=== PATIENT | male | born 1940 | race African-American/Black ===

== ENCOUNTER 2021-02-18 12:57 | Inpatient (IN) | payer MEDICARE, MEDICAID, SELFPAY ==
[2021-02-18] VITALS (7 sets, daily range): BP systolic 86–129; BP diastolic 45–100; PULSE 40–69; RESP 12–25; TEMP 36.6; O2SAT 95–100; BMI 23.6
--- NOTE | ~2021-02-18 | US_ITS ---
EXAMINATION: US carotid duplex BI DATE: 02/19/2021 16:19 INDICATION: Speech deficit. Confusion. TECHNIQUE: Grayscale, color Doppler, and pulsed Doppler images of the cervical carotid arteries were obtained. The degree of vessel stenosis is placed in one of the following categories: normal, <50%, 5 0-69%, >=70% but less than near-occlusion, near-occlusion, or total occlusion. Note that percent sten osis relative to normal distal artery lumen diameter is indirectly measured from velocity measurement s as described by Erickson, et al. Radiology 2003; 229:340-346. COMPARISON: None. FINDINGS: RIGHT: The right common carotid artery (CCA) peak systolic velocity (PSV) is 61 cm/s. The right internal car otid artery (ICA) PSV is 50 cm/s. The right ICA end-diastolic velocity (EDV) is 9 cm/s. The right ICA /CCA PSV ratio is 0.8. Grayscale and color Doppler images yield an estimate of <50% diameter reductio n from plaque in the ICA. There is antegrade flow in the right vertebral artery. LEFT: The left CCA PSV is 56 cm/s. The left ICA PSV is 59 cm/s. The left ICA EDV is 9 cm/s. The left ICA/CC A PSV ratio is 1.1. Grayscale and color Doppler images yield an estimate of <50% diameter reduction f rom plaque in the ICA. There is antegrade flow in the left vertebral artery. IMPRESSION: 1. <50% stenosis in the right internal carotid artery. 2. <50% stenosis in the left internal carotid artery. Reviewed, dictated and finalized at location A.
--- NOTE | ~2021-02-18 | XR_ITS ---
EXAMINATION: XR chest 1V portable INDICATION: Altered mental status TECHNIQUE: Portable AP chest at 1314 hours COMPARISON: None available FINDINGS: The lungs are free of acute opacities. There is no pleural effusion or pneumothorax. The ca rdiomediastinal silhouette is normal. Thoracic spondylosis is noted. IMPRESSION: 1. No acute cardiopulmonary abnormality. Reviewed, dictated and finalized at location A.
--- NOTE | ~2021-02-18 | CT_ITS ---
EXAMINATION: CT brain wo con INDICATION: Altered mental status, unresponsive COMPARISON: None TECHNIQUE: Standard unenhanced head CT. The dose-length product (DLP) was 605.33 mGy-cm. The mA was a djusted according to patient size. Iterative reconstruction technique was employed. FINDINGS: There is no acute intraparenchymal hemorrhage. No evidence of mass lesion. No evidence of a cute infarction. There is mild periventricular and subcortical hypodensity probably related to small vessel ischemic disease. There is mild prominence of the sulci and ventricles related to cerebral atr ophy. Intracranial calcified cerebral atherosclerosis is noted. There are no extra-axial collections. There is no mass effect or midline shift. Changes in the globes are likely from ocular lens surgery. The visualized sinuses and mastoid air cells are well aerated. IMPRESSION: 1. No acute intracranial abnormality. 2. Age related findings. Reviewed, dictated and finalized at location A.
--- NOTE | ~2021-02-18 | MR_ITS ---
EXAMINATION: MR brain/brain stem wo/w con EXAM DATE: 02/19/2021 13:15 INDICATION: Altered mental status. Unresponsive. TECHNIQUE: Magnetic resonance imaging (MRI) of the brain/brain stem obtained without contrast. Sagit hedy T1, axial diffusion, gradient echo (T2*), T1, T2, FLAIR sequences obtained. Patient was then inj ected with 15 cc intravenous Multihance contrast. Axial and coronal postcontrast T1 weighted sequence s obtained. There is no prior study for comparison. FINDINGS: There are no areas of restricted diffusion to suggest acute infarction. There is no acute hemorrhage seen on the T2*, a hemosiderin sensitive sequence. No intraparenchymal brain mass lesion. There is mild periventricular and subcortical T2/FLAIR signal hyperintensity, nonspecific but probab ly related to small vessel ischemic disease (microangiopathy). There is mild prominence of the sulc i and ventricles related to cerebral atrophy. There are no extra-axial collections. Flow voids are seen in the cerebral arteries on the T2-weighted sequences consistent with their expected patency. The orbits are unremarkable. Soft tissue is unremarkable. IMPRESSION: 1. No acute intracranial findings. 2. Chronic age related findings. Reviewed, dictated and finalized at location B.
--- NOTE | 2021-02-18 13:05 | ECG_ITS ---
Measurements Intervals [place] Rate: 65 P: 25 RI: 224 QRS: 57 QRSD: 93 T: 120 QT: 393 QTc: 409 Interpretive Statements SINUS RHYTHM WITH FIRST DEGREE AV BLOCK CONDUCTED AND NONCONDUCTED ATRIAL PREMATURE COMPLEXES BORDERLINE ST-T WAVE ABNORMALITY- INF/HIGH LAT LEADS ABNORMAL ECG Electronically Signed On 02-18-2021 14:02:47 CDT by Velasquez Menard D.O.
--- NOTE | 2021-02-18 13:07 | ED.AMS ---
HPI - Altered Mental Status General Chief Complaint: Altered Mental Status Stated Complaint: AMS Time Seen by Provider: 02/18/21 13:05 History of Present Illness HPI narrative: 80 yo male w/ h/o htn, dementia presents to the Ed from [place] for altered mental status. He is reportedly only oriented to self at baseline. For the past 2 hours he has been less than that. He was initially reported to be unresponsive. Heart rate was in the 40s. Responded to atropine per EMS. possible slight improvement in mental status following administration. Related Data Home Medications Medication Instructions Recorded Confirmed Aspir-81 81 mg PO DAILY 02/18/21 Miralax 17 g PO DAILY 02/18/21 amlodipine 10 mg PO DAILY 02/18/21 cyanocobalamin (vitamin B-12) 1,000 mg PO DAILY 02/18/21 haloperidol lactate 2 mg IM QID PRN 02/18/21 melatonin 5 mg PO HS 02/18/21 pantoprazole 40 mg PO DAILY 02/18/21 risperidone 2 mg FEEDING TUBE DAILY PRN 02/18/21 risperidone 6 mg FEEDING TUBE HS 02/18/21 tamsulosin 0.8 mg PO HS 02/18/21 valproic acid (as sodium salt) 1,250 mg FEEDING TUBE BID 02/18/21 Allergies Allergy/AdvReac Type Severity Reaction Status Date / Time lisinopril AdvReac Unknown Verified 02/18/21 13:02 Review of Systems Review of Systems: ROS unobtainable: Yes unobtainable due to mental status PMFSH Past Medical History Medical History (Updated 02/18/21 @ 17:55 by Erickson Veras MD) Dementia HTN (hypertension) Social History Social History (Updated 02/18/21 @ 17:48 by Erickson Veras MD) Living arrangements: group home Exam Const: General: alert, confusion and ill appearing chronically Nutritional Appearance: well nourished HENMT: Mouth: Yes dry mucous membranes Eyes: Pupils: Equal, round and reactive pupils present Neck: Neck: normal visual inspection Resp: Effort & Inspection: normal respiratory effort Auscultation: clear to auscultation bilaterally Other: loud upper airway noise Cardio: Rate: bradycardic Rhythm: abnormal rhythm regularly irregular GI: GI Palp: Yes Soft to palpation and No Tenderness to palpation present (GI) Skin: General skin exam: normal color Neuro: General: moves all extremities Other: occasional muscle fasciculations. No speech. Extrem: General: no edema Course Vital Signs Vital signs: Vital Signs Pulse Rate 69 02/18/21 12:57 Respiratory Rate 25 H 02/18/21 12:57 Blood Pressure 86/72 L 02/18/21 12:57 Pulse Oximetry 97 02/18/21 12:57 Pulse Rate 56 L 02/18/21 16:22 Respiratory Rate 12 02/18/21 16:22 Blood Pressure 118/53 L 02/18/21 16:22 Pulse Oximetry 100 02/18/21 16:22 MDM - Altered Mental Status MDM Narrative Medical decision making narrative: EKG x2 show second degree type I heart block. maintaining BP after fluids. Persistently altered mental status. Could be stroke versus metabolic encephalopathy versus other. Will admit for further evalaution Differential Diagnosis Differential diagnosis: Likely delirium, dementia, hypoglycemia, hyponatremia, subarachnoid hemorrhage, sepsis and other (CVA) Medical Records Attestation: I reviewed the patient's medical records. Lab Data Attestation: I reviewed the patient's lab results. Result diagrams: 02/18/21 13:20 02/18/21 13:20 Labs: Lab Results 02/18/21 02/18/21 02/18/21 Range/Units 13:20 13:20 13:28 WBC 2.7 L (4.5-10.0) K/mm3 RBC 3.65 L (4.6-6.20) M/mm3 Hgb 11.1 L (14.0-18.0) g/dL Hct 34.3 L (42.0-52.0) % MCV 94.0 (80-100) fl MCH 30.4 (26-34) pg MCHC 32.4 (32-36) g/dl RDW 16.5 H (11.5-14.5) % Plt Count 189 (150-375) k/mm3 MPV 10.9 H (7.4-10.4) fl Immature Gran % (Auto) 0.4 (0-0.5) % Neut % (Auto) 69.8 (45.5-73.1) % Lymph % (Auto) 16.6 L (18.3-44.2) % [place] % (Auto) 12.5 H (2.6-8.5) % Eos % (Auto) 0.7 (0-4.4) % Baso % (Auto) 0.0 L (0.2-1.2) % Lymph # (Auto) 0.45 L
[2021-02-18 13:28] LABS: Base Excess ABG 5.4 mEq/l (+/-2.0); Fractional Inspired Oxygen 21 %; HCO3 ABG 31.3 mEq/l (22.0-26.0); Oxygen Content ABG 15.6 %vol (16.0-22.0); Oxygen Saturation ABG 97.6 % (95.0-100.0); Oxyhemoglobin 96.3 % THb (90.0-100.0); PCO2 ABG 51.5 mmHg (35.0-45.0); PO2 ABG 102.9 mmHg (80.0-100.0); Total Hemoglobin 11.4 g/dL (12.0-18.0); pH ABG 7.401 (7.350-7.450)
[2021-02-18 13:30] LABS: Eosinophils Percent Auto 0.7 % (0-4.4); Hematocrit 34.3 % (42.0-52.0); Hemoglobin 11.1 g/dL (14.0-18.0); Immature Granulocyte Absolute 0.01 K/mm3 (0.00-0.031); Immature Granulocyte Percent A 0.4 % (0-0.5); Lymphocytes Absolute Auto 0.45 K/mm3 (0.9-3.2); Lymphocytes Percent Auto 16.6 % (18.3-44.2); Mean Corpuscular HGB Conc 32.4 g/dl (32-36); Mean Corpuscular Hemoglobin 30.4 pg (26-34); Mean Platelet Volume 10.9 fl (7.4-10.4); Monocytes Absolute Auto 0.3 K/mm3 (0.1-0.6); Monocytes Percent Auto 12.5 % (2.6-8.5); Neutrophils Absolute Auto 1.9 K/mm3 (1.3-6.7); Neutrophils Percent Auto 69.8 % (45.5-73.1); Platelet Count Result 189 k/mm3 (150-375); Red Blood Count 3.65 M/mm3 (4.6-6.20); Red Cell Distribution Width 16.5 % (11.5-14.5); White Blood Count 2.7 K/mm3 (4.5-10.0)
[2021-02-18 13:30] LABS: Device ROOM AIR; Modified Allen's Test Unable to perform; Site Drawn RIGHT RADIAL
[2021-02-18 13:42] LABS: Alanine Aminotransferase 85 U/L (4-50); Albumin Level 3.2 g/dL (3.5-5.1); Alkaline Phosphatase 83 U/L (38-126); Anion Gap 2 mmol/L (8-16); Aspartate Amino Transferase 77 U/L (17-59); Bilirubin,Total 0.3 mg/dL (0.2-1.3); Blood Urea Nitrogen 36 mg/dL (9-20); Calcium 8.9 mg/dL (8.4-10.2); Carbon Dioxide 30 mmol/L (22-30); Chloride 99 mmol/L (98-107); Estimated CRCL calculation 74 ml/min; Estimated Glomerular Filt Rate > 60; Glucose 101 mg/dL (65-110); Potassium 5.6 mmol/L (3.4-5.0); Sodium 131 mmol/L (137-145)
[2021-02-18 13:53] LABS: INR 0.9; Prothrombin Time 12.3 Seconds (11.1-14.7)
[2021-02-18 13:54] LABS: Partial Thromboplastin Time 29.3 SECONDS (22.3-36.8)
[2021-02-18] MEDS: SODIUM CHLORIDE 0.9% IV 1,000 ML 999 ML IV CONT (14:05)
--- NOTE | 2021-02-18 14:05 | ECG_ITS ---
Measurements Intervals [place] Rate: 49 P: NC: 0 QRS: 48 QRSD: 106 T: 63 QT: 456 QTc: 414 Interpretive Statements SINUS BRADYCARDIA WITH 2ND DEGREE AV BLOCK, MOBITZ TYPE I (WENCKEBACH) NONSPECIFIC T-WAVE ABNORMALITY- HIGH LATERAL LEADS BASELINE ARTIFACT- I, II, AVR, AVL, AVF ABNORMAL ECG Electronically Signed On 02-18-2021 16:46:59 CDT by Velasquez Menard D.O.
[2021-02-18 15:25] LABS: Add Urine Microscopic? YES; Appearance Urine Clear (Clear); Bilirubin Urine Negative (Negative); Color Urine Yellow (Yellow); Glucose Urine UA Negative (Negative); Ketones Urine Negative (Negative); Leukocyte Esterase Ur Negative LEU/UL (Negative); Mucus Urine Rare /lpf; Nitrate Urine Negative (Negative); Protein Urine 1+ mg/dL (Negative); Specific Grav Ur 1.018 (1.001-1.035)
[2021-02-18 15:27] LABS: Blood Urine Negative (Negative)
--- NOTE | 2021-02-18 17:38 | PC.NURSE ---
Spoke with and updated her on pt and admission status.
--- NOTE | 2021-02-18 19:15 | PC.NURSE ---
Assumed care of pt at this time. Report from Eunice COOPER
--- NOTE | 2021-02-18 21:15 | PM.IMHP ---
H&P: HPI History of Present Illness Date/Time: 02/18/21 21:15 this is a 80-year-old correction male patient who has a history of dementia and came into the ER today due to worsening confusion. Typically the patient is a and O x1 and the patient has been nonverbal today. The patient appears to be dry. Patient's daughter was called earlier today and she was unable to provide information. The daughter was question about the patient's code status and she did not recall signing patient's living will stating that he is a full code. The patient's initial blood pressure was 86/72. In the patient's mucous membranes were dry. It was thought that perhaps the patient is dry. Patient's potassium was noted to be 5.6. AST 77 and ALT 85. His urine was clear. Head CT was read as no acute intracranial abnormality. Age-related findings. The patient is moaning at times but has his eyes open and is able to follow me in the room. I am unable to obtain any information from the patient at this time Or any other family members. Patient's heart rate was noted to be in the 40s at the correction. The patient was noted to have sinus bradycardia with second-degree AV block Mobitz type 1 Wenckebach. Not sure if this is chronic or new. There are no obtainable old records from our system. The patient was given IV fluids. Patient's heart rate was noted to be anywhere from 51-69 in the hospital. The patient had repetitive tongue motion. The patient was able to suck on a mouth swab. The patient was not following commands very easily. The patient is being admitted to observation status on the date of service of 02/18/2021. I was able to get in touch with his later for information Chief Complaint: Confusion Review of Systems Review of Systems: ROS unobtainable: Yes unobtainable due to mental status PMFSH Past Medical History Medical History (Updated 02/18/21 @ 22:13 by Vero Peraza NP) BPH (benign prostatic hyperplasia) Dementia G tube feedings Jevity tube feeding with mechanical soft diet. HTN (hypertension) Surgical History Surgical History (Updated 02/18/21 @ 21:42 by Vero Peraza NP) History of ankle surgery History of carpal tunnel release Previous back surgery neck and back Total knee replacement status Family History Family History (Updated 02/18/21 @ 21:48 by Vero Peraza NP) Father Acute myocardial infarction Mother Cerebrovascular accident Social History Social History (Updated 02/18/21 @ 22:06 by Vero Peraza NP) Social History: lives in [place] . He is . He has 2 steps sons. is poa. He quit smoking. retired from [employer]. the patient is listed as a full code but does not want to live in a vegetative state according to his . Smoking status: Former smoker Living arrangements: correction Meds Home Medications and Allergies Home Medications Medication Instructions Recorded Confirmed Type Aspir-81 81 mg PO DAILY 02/18/21 History Miralax 17 g PO DAILY 02/18/21 History amlodipine 10 mg PO DAILY 02/18/21 History cyanocobalamin (vitamin B-12) 1,000 mg PO DAILY 02/18/21 History haloperidol lactate 2 mg IM QID PRN 02/18/21 History melatonin 5 mg PO HS 02/18/21 History pantoprazole 40 mg PO DAILY 02/18/21 History risperidone 2 mg FEEDING TUBE DAILY PRN 02/18/21 History risperidone 6 mg FEEDING TUBE HS 02/18/21 History tamsulosin 0.8 mg PO HS 02/18/21 History valproic acid (as sodium salt) 1,250 mg FEEDING TUBE BID 02/18/21 History Allergies Allergy/AdvReac Type Severity Reaction Status Date / Time lisinopril AdvReac Unknown Verified 02/18/21 13:02 Vital Signs Vital Signs - 24 hr 02/18/21 12:57 02/18/21 14:04 02/18/21 15:58 Pulse Rate 69 51 L 59 L Respiratory Rate 25 H 12 17 Blood Pressure 86/72 L 91/45 L 113/88 Pulse Oximetry 97 100 99 02/18/21 16:22 02/18/21 20:27 Pulse Rate 56 L 56 L Respiratory Rate 12 18 Blood P
--- NOTE | 2021-02-18 23:31 | PC.NURSE ---
This patient, Robbin Bedoya Jr., was admitted to IMU Room 205-01 on 02/18/21 at 2315. Patient/family oriented to hospital policies and general routines including ID bracelet, bed and alarms, visiting hours, pain management, procedures, bathroom and other care routines, personal items, smoking policy, room service/diet, and visiting hours. Information on how to activate the Rapid Response Team has been discussed. Patient/Family are encouraged to report perceived risks to care and to ask questions if they do not understand what they are told or what they should do.
[2021-02-18 23:35] LABS: Anion Gap 1 mmol/L (8-16); Blood Urea Nitrogen 32 mg/dL (9-20); Calcium 8.7 mg/dL (8.4-10.2); Carbon Dioxide 30 mmol/L (22-30); Chloride 102 mmol/L (98-107); Estimated CRCL calculation 83 ml/min; Estimated Glomerular Filt Rate > 60; Glucose 89 mg/dL (65-110); Potassium 5.6 mmol/L (3.4-5.0); Sodium 133 mmol/L (137-145)
[2021-02-19] VITALS (18 sets, daily range): BP systolic 97–130; BP diastolic 42–73; PULSE 33–65; RESP 12–19; TEMP 32.3–36.4; O2SAT 96–100; BMI 23.6
--- NOTE | 2021-02-19 | ECHO_ITS ---
Patient Info Name: Robbin Bedoya Age: 80 years : 1940 Gender: Male Ht: 73 in Wt: 178 lbs BSA: 2.04 m2 HR: 43 bpm BP: 130 / 73 mmHg Heart Rhythm: Bradycardia Exam Date: 02/19/2021 10:25 AM Exam Location: [facility] Patient Status: Outpatient Admit Date: 02/18/2021 Staff Ordering Physician: Vero Peraza NP Building Services Engineer: Get Bryant RDCS, RT Attending Provider: Pedro Zhu MD Referring Physician: Stu DAVILA; Exam Type: CA echo dop bubble study w con Study Info Indications R27.8 - Other lack of coordination Complete two-dimentional, color flow and Doppler transthoracic echocardiogram is performed with agitated saline and with contrast to opacify the left ventricle and to improve the delineation of the left ventricle endocardial borders. Summary 1. Left ventricular chamber dimension is normal. 2. Left ventricular systolic function is normal, estimated at 60-65%. 3. There is mildly increased left ventricular wall thickness. 4. Left ventricular septal wall motion is abnormal with septal motion related to bundle branch block. 5. The left ventricular diastolic function is grade III diastolic dysfunction. 6. There is no aortic valve stenosis. 7. There is mild mitral valve regurgitation. 8. There is mild tricuspid valve regurgitation. 9. No pulmonary hypertension, estimated pulmonary arterial systolic pressure is 32 mmHg. 10. Atrial septal aneurysmal motion. Evidence of faint right to left shunt with injection of agitated saline suggestive of small patent foramen ovale. Left Ventricle Left ventricular chamber dimension is normal. Left ventricular systolic function is normal, estimated at 60-65%. There is mildly increased left ventricular wall thickness. Left ventricular septal wall motion is abnormal with septal motion related to bundle branch block. The left ventricular diastolic function is grade III diastolic dysfunction. Right Ventricle Right ventricular chamber dimension is normal. Right ventricular systolic function is normal. Left Atria Left atrial chamber dimension is normal. Right Atria Right atrial chamber dimension is normal. Atrial Septum Atrial septal aneurysmal motion. Evidence of faint right to left shunt with injection of agitated saline suggestive of small patent foramen ovale. Aortic Valve The aortic valve is trileaflet. There is mild aortic valve sclerosis. There is no aortic valve stenosis. Pulmonic Valve The pulmonic valve is not well visualized. There is mild pulmonic regurgitation. Mitral Valve The mitral valve has thickened leaflets. There is mild mitral valve regurgitation. The mitral valve annulus is mildly calcified. Tricuspid Valve The tricuspid valve leaflets are normal. There is mild tricuspid valve regurgitation. No pulmonary hypertension, estimated pulmonary arterial systolic pressure is 32 mmHg. Pericardium/Pleural The pericardium appears normal. There is no pericardial effusion. Inferior Vena Cava Normal inferior vena cava with >50% collapse upon inspiration consistent with normal right atrial pressure, 5 mmHg. Aorta The aortic root size at the sinus of Valsalva is normal. There is mild aortic atherosclerosis. Left Ventricular Outflow Tract Name Value Normal LVOT 2D
[2021-02-19] MEDS: SODIUM CHLORIDE 0.9% IV 1,000 ML 125 ML IV CONT ×2 (00:06→08:09)
[2021-02-19 00:14] LABS: Valproic Acid 14.7 ug/mL (50-120)
[2021-02-19] MEDS: SODIUM POLYSTYRENE SULFONONATE 15 GM/60 ML BTL FEED TUBE (01:30)
[2021-02-19 05:32] LABS: Alanine Aminotransferase 78 U/L (4-50); Albumin Level 2.9 g/dL (3.5-5.1); Alkaline Phosphatase 83 U/L (38-126); Anion Gap 0 mmol/L (8-16); Aspartate Amino Transferase 69 U/L (17-59); Bilirubin,Total 0.3 mg/dL (0.2-1.3); Blood Urea Nitrogen 28 mg/dL (9-20); Calcium 8.5 mg/dL (8.4-10.2); Carbon Dioxide 30 mmol/L (22-30); Chloride 103 mmol/L (98-107); Estimated CRCL calculation 83 ml/min; Estimated Glomerular Filt Rate > 60; Glucose 89 mg/dL (65-110); Magnesium 2.1 mg/dL (1.6-2.3); Potassium 4.9 mmol/L (3.4-5.0); Sodium 133 mmol/L (137-145)
[2021-02-19 05:35] LABS: Lactic Acid Reflex 0.7 mmol/L (0.7-2.1)
[2021-02-19] MEDS: LANSOPRAZOLE ORAL SUSP 30 MG/10 ML ORAL.SUSP FEED TUBE (06:04)
[2021-02-19 09:55] LABS: Folic Acid 5.9 ng/mL (2.76->20)
--- NOTE | 2021-02-19 09:55 | PC.NURSE ---
I spoke with patient's regarding code status and treatment plan. She would like to proceed with a full code status and continue all treatments.
[2021-02-19] MEDS: ATROPINE SULFATE 1 MG/ML VIAL 0.4 MG IV PUSH ×2 (10:24→11:48)
[2021-02-19] MEDS: ATROPINE SULFATE 1 MG/10 ML SYRINGE (10:24)
[2021-02-19] MEDS: PERFLUTREN LIPID MICROSPHERES 1.5 ML VIAL DILUTED TO 10 ML TOTAL VOLUME IV PUSH (11:07)
--- NOTE | 2021-02-19 11:38 | PM.CNCAR ---
Assessment and Plan Assessment and plan (1) Bradycardia: Code(s): R00.1 - Bradycardia, unspecified Status: Acute Assessment and Plan: Patient unable to elicit symptoms. Patient has been relatively hemodynamically stable thus far he is not exhibiting high-grade AV block. He previously was in a two-to-one AV block most likely type 1 cannot exclude type 2 although given severity bradycardia raising concern for high-grade AV block in this regard. However, complete heart block not been seen. He responds well to atropine returning to sinus rhythm. He had a very brief episode of accelerated idioventricular rhythm. Monitor electrolytes. TSH normal. Potassium now the normal range. Magnesium normal. He is not on directed medical therapy which would necessary explain his bradycardia. This is consistent with sick sinus syndrome. Patient apparently at baseline is demented and resident of a assisted with feeding tube. Patient has been listed as a full code. Per discussions with Dr. Zhu his will discuss with family. Apparently there were issues at [facility] as well with recent hospitalization for which pacemaker options were discussed as well as hospice recommendations. Transcutaneous pacemaker pads in place. Initiate dopamine if hypotension and or refractory bradycardia. Maximum total recommended atropine administration 0.04 milligram/kilogram with at a documented weight of 81 kg equals to 3.2 g. Given patient's baseline dementia now with unresponsiveness, feeding tube status and apparent limited quality of life proceeding with pacemaker implantation does not appear to be most appropriate next step. Serous discussion with regards to life expectancy, quality of life and overall benefit have been held with primary service and his /power of sports attorney. She indicated she will discuss further with family and call back with further decisions. Chronicity of this issue is unknown at this time. Will try to avoid invasive procedures due to risks, limited benefit with regards to quality of life. 2D echocardiogram. Relation to follow. (2) Wenckebach second degree AV block: Code(s): I44.1 - Atrioventricular block, second degree Status: Acute Assessment and Plan: As above. Avoid AV eusebio blocking agents. Continue telemetry. DVT prophylaxis. (3) Dementia: Code(s): F03.90 - Unspecified dementia without behavioral disturbance Status: Chronic Assessment and Plan: Persistent, presenting with altered mental status. Infectious workup as appropriate. (4) Hyperkalemia: Code(s): E87.5 - Hyperkalemia Status: Acute Assessment and Plan: Improved after Kayexalate. Likely secondary to dehydration with elevated BUN at presentation. IV fluids as tolerated. Nutritional support as appropriate. (5) SONIA (obstructive sleep apnea): Code(s): G47.33 - Obstructive sleep apnea (adult) (pediatric) Status: Acute Assessment and Plan: Apnea link. Patient has frequent observed apneic spells due to obstruction cannot exclude central as well. Consider trial of CPAP/BiPAP support and effect on bradycardia. History of Present Illness History of Present Illness Consult date/time: Date of service: 02/19/21 11:38 Cardiology consultation at the request of Vero Peraza for our opinion regarding altered mental status and heart block and bradycardia. Requesting physician: Vero Peraza NP Consult reason: Other (bradycardia, heart block) Reason For Visit: AMS,Second Degree Heart Block Type 1,Bradycardia Narrative: Patient is a 80-year-old male who was resident in the assisted baseline dementia who presented to the ER from the assisted with worsening confusion. He was found to be bradycardic with heart rates in the 30s to 40s improved with atropine in the ER. He is relatively hypotensive initially with blood pressure 86/70. Nursing staff and primary medicine serv
[2021-02-19] MEDS: VALPROIC ACID LIQ 250 MG/5 ML ORAL SOLUTION UDC 1250 MG FEED TUBE ×2 (11:40→17:22)
[2021-02-19] MEDS: CYANOCOBALAMIN 1,000 MCG TABLET 1000 MCG PO (11:41)
[2021-02-19] MEDS: ASPIRIN 81 MG CHEWABLE TABLET FEED TUBE (11:41)
--- NOTE | 2021-02-19 13:32 | PM.IMPN ---
Progress Note: A&P Assessment and Plan (1) Bradycardia: Code(s): R00.1 - Bradycardia, unspecified Status: Acute Assessment and Plan: Patient's heart rate has dropped into the 30s and 40s. He responds with atropine. Cardiology been consulted. Echocardiogram pending. Consider starting dopamine. (2) Altered mental status: Code(s): R41.82 - Altered mental status, unspecified Status: Acute Assessment and Plan: Patient admitted for altered mental status. He does have advanced dementia. AMS could be from dehydration and/or bradycardia and/or sleep apnea and/or worsening dementia. CT of the brain was negative. MRI brain ordered and is pending. Follow-up on results. (3) Wenckebach second degree AV block: Code(s): I44.1 - Atrioventricular block, second degree Status: Acute Assessment and Plan: Patient found to have second-degree AV block type 1. Could be related to undiagnosed sleep apnea and/or hyperkalemia. Discussed with Cardiology. Echocardiogram is pending. Will continue to monitor on tele. Appreciate cardiology input. (4) Hyperkalemia: Code(s): E87.5 - Hyperkalemia Status: Acute Assessment and Plan: Potassium elevated on admission possibly related to dehydration. BUN elevated with normal creatinine but patient's muscle mass may be depleted. With IV fluids, his BUN has trended downward. His potassium is normalized. He is not on medications that would contribute to hyperkalemia. Will decrease IV fluid rate. Continue to follow. (5) Dementia: Code(s): F03.90 - Unspecified dementia without behavioral disturbance Status: Chronic Assessment and Plan: With behavioral issues. Valproic acid level within normal limits. Continue valproic acid risperidone. Haldol available as needed for agitation. (6) BPH (benign prostatic hyperplasia): Code(s): N40.0 - Benign prostatic hyperplasia without lower urinary tract symptoms Status: Chronic Assessment and Plan: Stable. Do not appreciate distended bladder. Continue with home Flomax (7) G tube feedings: Code(s): Z93.1 - Gastrostomy status Status: Chronic Assessment and Plan: The stated that the patient is on Jevity but she did not state if the patient is continue with or bolus feedings. The patient does have a poor appetite and most likely is dehydrated. According to the the patient does eat mechanical soft diet. Will not contiue mechanical soft diet here. [employer] consult for TF recommendations. Resume TF (8) HTN (hypertension): Code(s): I10 - Essential (primary) hypertension Status: Chronic Assessment and Plan: Patient's blood pressure was reviewed on 02/19 Blood pressure remains well controlled, even soft at times. Amlodipine on hold. (9) DVT prophylaxis: Code(s): Z29.9 - Encounter for prophylactic measures, unspecified Status: Acute Assessment and Plan: SCDs Additional Plan Leukopenia -white count 2700 with elevated monocytes. Possibly viral etiology. Repeat labs in the morning. Elevated liver enzymes -levels mildly elevated on admission and are trending downward already. Suspect related to viral illness. Subjective Date/time seen: 02/19/21 13:32 Interval history: 80yo male with advanced dementia and dysphagia s/p GTube in place here for altered mental status and found to have bradycardia. Patient is awake at times but is essentially nonverbal. No hx could be obtained. Cardiology did have to give the patient Atropine due to persistent bradycardia Spoke with . Patient used to have SONIA but he 'grew out of it'. Patient does talk at times. [place] early in the summer 2020 and then sent to [facility]. Hospice was discussed when he was at [facility]. Spoke with her about Hospice and she will speak with other family members and let us kn
[2021-02-19] MEDS: ATROPINE SULFATE 1 MG/10 ML SYRINGE 0.5 MG IV PUSH (13:58)
[2021-02-19] MEDS: DOPamine 400 MG/D5W 250 ML 400 MG/250 ML BAG 7.59 MG IV CONT (14:00)
--- NOTE | 2021-02-19 16:20 | PC.NURSE ---
Spoke with Dr. Orellana about patient's heart rate. Order received to increase dopamine to 5 mcg/kg/min.
[2021-02-19] MEDS: SODIUM CHLORIDE 0.9% IV 1,000 ML 70 ML IV CONT (17:22)
[2021-02-19] MEDS: risperiDONE 1 MG TABLET 6 MG FEED TUBE (21:32)
[2021-02-19] MEDS: polyethylene glycoL 3350 17 GM POWD.PACK FEED TUBE (21:32)
[2021-02-19] MEDS: MELATONIN 5 MG TABLET FEED TUBE (21:32)
[2021-02-20] VITALS (14 sets, daily range): BP systolic 98–117; BP diastolic 35–45; PULSE 36–75; RESP 12–24; TEMP 33.2–37.7; O2SAT 93–100
--- NOTE | 2021-02-20 02:19 | PCRCNOTE ---
apnea link not done. pt was deemed too unstable by the nurse to proceed with the test. family is coming in tomorrow to talk about placing pt on hospice.
[2021-02-20] MEDS: LANSOPRAZOLE ORAL SUSP 30 MG/10 ML ORAL.SUSP FEED TUBE (05:30)
[2021-02-20 06:51] LABS: Hemoglobin 10.9 g/dL (14.0-18.0); Immature Granulocyte Absolute 0.02 K/mm3 (0.00-0.031); Immature Granulocyte Percent A 0.6 % (0-0.5); Lymphocytes Absolute Auto 0.45 K/mm3 (0.9-3.2); Lymphocytes Percent Auto 13.1 % (18.3-44.2); Mean Corpuscular HGB Conc 31.1 g/dl (32-36); Mean Corpuscular Hemoglobin 29.9 pg (26-34); Mean Corpuscular Volume 95.9 fl (80-100); Mean Platelet Volume 11.9 fl (7.4-10.4); Monocytes Absolute Auto 0.4 K/mm3 (0.1-0.6); Monocytes Percent Auto 12.2 % (2.6-8.5); Neutrophils Absolute Auto 2.5 K/mm3 (1.3-6.7); Neutrophils Percent Auto 74.1 % (45.5-73.1); Platelet Count Result 169 k/mm3 (150-375); Red Blood Count 3.65 M/mm3 (4.6-6.20); Red Cell Distribution Width 16.2 % (11.5-14.5); White Blood Count 3.4 K/mm3 (4.5-10.0)
[2021-02-20 07:06] LABS: Alanine Aminotransferase 64 U/L (4-50); Albumin Level 2.8 g/dL (3.5-5.1); Alkaline Phosphatase 71 U/L (38-126); Anion Gap -5 mmol/L (8-16); Aspartate Amino Transferase 67 U/L (17-59); Bilirubin,Total 0.2 mg/dL (0.2-1.3); Blood Urea Nitrogen 34 mg/dL (9-20); Calcium 9.2 mg/dL (8.4-10.2); Carbon Dioxide 34 mmol/L (22-30); Chloride 103 mmol/L (98-107); Estimated CRCL calculation 60 ml/min; Estimated Glomerular Filt Rate > 60; Glucose 91 mg/dL (65-110); Phosphorus 4.3 mg/dL (2.5-4.5); Sodium 132 mmol/L (137-145)
[2021-02-20] MEDS: DOPamine 400 MG/D5W 250 ML 400 MG/250 ML BAG 15.19 MG IV CONT (08:27)
[2021-02-20] MEDS: AMPICILLIN TRIHYDRATE 500 MG CAPSULE FEED TUBE ×3 (08:35→18:48)
[2021-02-20] MEDS: CYANOCOBALAMIN 1,000 MCG TABLET 1000 MCG PO (08:36)
[2021-02-20] MEDS: ASPIRIN 81 MG CHEWABLE TABLET FEED TUBE (08:36)
[2021-02-20] MEDS: VALPROIC ACID LIQ 250 MG/5 ML ORAL SOLUTION UDC 1250 MG FEED TUBE ×2 (08:36→18:48)
[2021-02-20] MEDS: SODIUM CHLORIDE 0.9% IV 1,000 ML 70 ML IV CONT (10:45)
--- NOTE | 2021-02-20 13:10 | PM.PNCARD ---
Progress Note: A&P Assessment and Plan (1) Bradycardia: Code(s): R00.1 - Bradycardia, unspecified Status: Acute Assessment and Plan: Generally sinus bradycardia unclear second-degree AV block Mobitz type 1. These are not indication for permanent pacemaker implantation. However, occasional episodes of accelerated idioventricular rhythm, 2-1 av block and on 2 or 3 occasions very brief high-grade AV block possible with dropped QRS and unchanged MN interval. He remains on dopamine. This may be discontinued depending upon plans with family and hospice. Defer to primary service in this regard. No indication for pacemaker at this time. If family proceed with hospice care as is planned will sign. Please do not hesitate to contact us with any additional questions or concerns. Reportedly per family there was discussion with regards to bradycardia and pacemaker consideration with a prior hospitalization, records unavailable at this time. (2) Wenckebach second degree AV block: Code(s): I44.1 - Atrioventricular block, second degree Status: Acute Assessment and Plan: As above. Avoid AV eusebio blocking agents. Continue telemetry. DVT prophylaxis. (3) Dementia: Code(s): F03.90 - Unspecified dementia without behavioral disturbance Status: Chronic Assessment and Plan: Persistent, presenting with altered mental status. (4) Hyperkalemia: Code(s): E87.5 - Hyperkalemia Status: Acute Assessment and Plan: Improved after Kayexalate. (5) SONIA (obstructive sleep apnea): Code(s): G47.33 - Obstructive sleep apnea (adult) (pediatric) Status: Acute Assessment and Plan: Patient has frequent observed apneic spells due to obstruction cannot exclude central as well. Subjective Date/time seen: Date of service: 02/20/21 13:10 Follow-up for bradycardia, second-degree AV block Mobitz type 1 Patient unresponsive. Periodic significant bradycardia responding well to atropine. Started on dopamine infusion yesterday due to hypotension as well as bradycardia. BP and heart rate stable this a.m.. Patient on answering questions. Patient was hypothermic yesterday afternoon resolved now. He is on antibiotics. Nursing and primary service report family desires comfort/hospice care. Review of Systems Review of Systems: All systems reviewed & are unremarkable except as noted in HPI and below ROS unobtainable: Yes unobtainable due to medical condition and unobtainable due to mental status Constitutional: Constitutional: Reports as per HPI and Reports no additional constitutional complaints Eyes: Eyes: Reports as per HPI and Reports no additional eye complaints ENT: Reports system reviewed and no additional complaints, except as documented and Reports as per HPI Cardiovascular: Cardiovascular: Reports as per HPI and Reports no additional cardiovascular complaints Respiratory: Respiratory: Reports as per HPI and Reports no additional respiratory complaints Gastrointestinal: Gastrointestinal: Reports as per HPI and Reports no additional gastrointestinal complaints Genitourinary: Genitourinary: Reports no additional male genitourinary complaints and Reports as per HPI Musculoskeletal: Musculoskeletal: Reports no additional musculoskeletal complaints and Reports as per HPI Integumentary/Breasts: Skin/Breast: Reports system reviewed and no additional complaints, except as docu and Reports as per HPI Neurologic: Reports system reviewed and no additional complaints, except as documented and Reports as per HPI Psychiatric: Psychiatric: Reports no additional psychiatric complaints and Reports as per HPI Endocrine: Endocrine: Reports no additional endocrine complaints and Reports as per HPI Hematologic/Lymphatic: Hematologic/Lymphatic: Reports no additional hematologic/lymphatic complaints and Reports as per HPI Allergic/Immunologic: Allergic/Immunologic: Reports no addition
--- NOTE | 2021-02-20 14:09 | PM.DS ---
DS: Admitting Diagnosis Admitting Diagnosis Altered mental status DS: Discharge Diagnosis Discharge Diagnosis (1) Bradycardia: Code(s): R00.1 - Bradycardia, unspecified Status: Acute (2) Altered mental status: Code(s): R41.82 - Altered mental status, unspecified Status: Acute (3) Wenckebach second degree AV block: Code(s): I44.1 - Atrioventricular block, second degree Status: Acute (4) Hyperkalemia: Code(s): E87.5 - Hyperkalemia Status: Acute (5) Dementia: Code(s): F03.90 - Unspecified dementia without behavioral disturbance Status: Chronic (6) BPH (benign prostatic hyperplasia): Code(s): N40.0 - Benign prostatic hyperplasia without lower urinary tract symptoms Status: Chronic (7) G tube feedings: Code(s): Z93.1 - Gastrostomy status Status: Chronic (8) HTN (hypertension): Code(s): I10 - Essential (primary) hypertension Status: Chronic DS: Summary Hospital Course Reason for hospitalization: 80yo male with advanced dementia and dysphagia s/p GTube in place here for altered mental status and found to have bradycardia. Please see H&P for details Hospital Course: 80yo male patient with a history of dementia who is brought into the ED from the care home by ER due to worsening confusion. Patient's heart rate was in the 30s and 40s. He did respond with atropine. Cardiology was consulted and he was started on low dose Dopamine. Echo showing EF 65% with Grade 3 diastolic dysfunction. Patient has advanced dementia. CT of the brain was negative. MRI brain showing no acute findings. EKG showing second-degree AV block type 1. Patient has known SONIA that is untreated and he did have evidence of apneic spells. Potassium elevated on admission possibly related to dehydration. With IV fluids, his BUN has trended downward and potassium has normalized. Leukopenia noted on admission with white count 2700 with elevated monocytes. Possibly viral etiology. Repeat WBC better. Elevated liver enzymes on admission but already wee trending down. Pateint also noted to have hypothermia. UCx positive for Enterococcus Spoke with . [place] early in the summer 2020 and then sent to [facility]. Hospice was discussed when patient was at [facility]. Spoke with about Hospice and she wished to discuss with other family members. Spoke with again and she wanted to proceed with Hospice. All questions were answered. She was able to visit the patient here. Dopamine stopped this morning ans patient's HR dropped to the 40 range but stable and felt safe to discharge back to the care home. Dress Fitter notified and hospice at care home arranged. Status at Discharge Cognitive/behavioral status at discharge: stable Time Spent with Patient Time attestation: Total time spent providing and/or coordinating discharge services: 32 minutes Time spent: Greater than 30 minutes Exam Narrative: AF 98.7 117/43 67 20 93% ra Gen - NARD. Chest - coarse BS anteriorly CV - bradycardic Abd - Soft, ND, +BS. GTube site clean and dry Ext - No pedal edema Neuro - difficult to arouses Skin - Warm and dry DS: Data Data Completed and Pending Labs on day of discharge: Labs from last 24 hours 02/20/21 02/20/21 05:44 05:44 WBC 3.4 L RBC 3.65 L Hgb 10.9 L Hct 35.0 L MCV 95.9 MCH 29.9 MCHC 31.1 L RDW 16.2 H Plt Count 169 MPV 11.9 H Immature Gran % (Auto) 0.6 H Neut % (Auto) 74.1 H Lymph % (Auto) 13.1 L [place] % (Auto) 12.2 H Eos % (Auto) 0.0 Baso % (Auto) 0.0 L Lymph # (Auto) 0.45 L [place] # (Auto) 0.4 Eos # (Auto) 0.0 Baso # (Auto) 0.0 Abs Immat Gran (auto) 0.02 Absolute Neuts (auto) 2.5 Absolute Nucleated RBC 0.0 Nucleated RBC % 0.0 Sodium 132 L Potassium 5.0 Chloride 103 Carbon Dioxide 34 H Anion Gap -5 L BUN 34 H Creatinine 1.00 Es
--- NOTE | 2021-02-21 05:59 | P.CDI_ITS ---
CDI Query Clarification Request -02/18 urine culture grew >100,000 enterococcus -Ampicillin ordered - UCx positive for Enterococcus documented Please clarify if there is a possible corresponding diagnosis for above findings: * UTI * Bacteriuria * Other * Unable to determine <Akua Osman RN - Last Filed: 02/21/21 06:01>
== END 2021-02-20 20:26 | disposition hospice, home (50) | DRG 309 ==
LOC: ANHED 17:55 → ANHIMU 21:48
PROVIDERS: Nurse Practitioner; Admitting Provider Internal Medicine; Emergency Provider Emergency Medicine; Visit Provider Internal Medicine
DX: I44.1 Atrioventricular block, second degree (principal); N39.0 Urinary tract infection, site not specified; B95.2 Enterococcus as the cause of diseases classified elsewhere; F03.90 Unspecified dementia, unspecified severity, without behavioral disturbance, psychotic disturbance, mood disturbance, and anxiety; I10 Essential (primary) hypertension; R00.1 Bradycardia, unspecified; R41.82 Altered mental status, unspecified; E87.5 Hyperkalemia; G47.33 Obstructive sleep apnea (adult) (pediatric); N40.0 Benign prostatic hyperplasia without lower urinary tract symptoms; D72.819 Decreased white blood cell count, unspecified; R74.8 Abnormal levels of other serum enzymes; Z93.1 Gastrostomy status; Z87.891 Personal history of nicotine dependence; Z79.899 Other long term (current) drug therapy
CPT/HCPCS: 36415; 36600; 51701; 70450; 70553; 71045; 80048; 80053; 80164; 81001; 82607; 82746; 82805; 83605; 83735; 84100; 84443; 85025; 85610; 85730; 87040; 87077; 87086; 87088; 87186; 93005; 93880; 94002; 96361; 96374; 96375; 99285; A9270; A9577; C8929; G0378; J0461; J1265; J7030; Q9957